=== PATIENT | female | born 1975 | race Two or more races ===

== ENCOUNTER 2021-12-12 00:57 | Emergency (ER) | payer MEDICAID ==
[2021-12-12] MEDS ORDERED: Sodium Chloride 0.9% 10 ML Syringe FLUSH PRN (01:24)
[2021-12-12] MEDS ORDERED: Labetalol 20 MG/4 ML Syringe IVPUSH ONE (01:38)
[2021-12-12] MEDS ORDERED: Ketorolac 30 MG/ML SDV IVPUSH ONE (02:50)
[2021-12-12] MEDS ORDERED: hydrALAZINE 20 MG/ML SDV IVPUSH ONE ×2 (02:50→03:00)
== END 2021-12-12 03:50 | disposition home or self-care (01) ==
LOC: FB.ED 00:57
DX: I16.0 Hypertensive urgency (principal); Z79.899 Other long term (current) drug therapy
CPT/HCPCS: 93005; 96374; 96375; 99283-25; J0360; J1885; J3490

== ENCOUNTER 2021-12-17 02:40 | Emergency (ER) | payer MEDICAID ==
[2021-12-17] MEDS ORDERED: hydrALAZINE 20 MG/ML SDV IM STA (03:15)
[2021-12-17] MEDS ORDERED: cloNIDine 0.1 MG Tab PO STA (03:15)
[2021-12-17] MEDS ORDERED: amLODIPine 10 MG Tab PO STA (04:40)
== END 2021-12-17 04:55 | disposition home or self-care (01) ==
LOC: FB.ED 02:40
DX: I16.9 Hypertensive crisis, unspecified (principal); I10 Essential (primary) hypertension; Z79.899 Other long term (current) drug therapy
CPT/HCPCS: 96372; 99283; A9270; J0360

== ENCOUNTER 2022-01-14 15:45 | Emergency (ER) | payer MEDICAID ==
[2022-01-14] MEDS ORDERED: hydrALAZINE 20 MG/ML SDV IVPUSH ONE (16:08)
[2022-01-14] MEDS ORDERED: Nitroglycerin 0.4 MG Tab.SL SL ONE (16:08)
[2022-01-14 16:14] LABS: ESTIMATED GFR 33 mL/min (>60)
[2022-01-14] MEDS: Sodium Chloride 0.9% 10 ML Syringe FLUSH PRN ×3 (16:20→16:58)
[2022-01-14] MEDS ORDERED: Ketorolac 30 MG/ML SDV IVPUSH ONE (16:47)
== END 2022-01-14 17:10 | disposition home or self-care (01) ==
LOC: FB.ED 15:45
DX: R07.9 Chest pain, unspecified (principal); I16.9 Hypertensive crisis, unspecified; I10 Essential (primary) hypertension
CPT/HCPCS: 36415; 71045; 80053; 84484; 85025; 93005; 93010; 96374; 96375; 99283; 99285-25; A9270-GY; J0360; J1885; J3360; J3490

== ENCOUNTER 2022-03-07 22:00 | Emergency (ER) | payer MEDICAID ==
[2022-03-07] MEDS ORDERED: hydrALAZINE 50 MG Tab PO STA (22:16)
[2022-03-07] MEDS ORDERED: Furosemide 100 MG/10 ML SDV IVPUSH ONE (22:18)
[2022-03-07] MEDS ORDERED: hydrALAZINE 25 MG Tab PO STA (22:26)
[2022-03-07] MEDS ORDERED: Nitroglycerin/D5W 25 MG/250 ML BOTTLE IV SCH (22:30)
[2022-03-07 23:12] LABS: ESTIMATED GFR 29 mL/min (>60)
== END 2022-03-08 00:25 ==
LOC: FB.ED 22:00
DX: I13.0 Hypertensive heart and chronic kidney disease with heart failure and stage 1 through stage 4 chronic kidney disease, or unspecified chronic kidney disease (principal); N18.32 Chronic kidney disease, stage 3b; I50.9 Heart failure, unspecified; N17.9 Acute kidney failure, unspecified
CPT/HCPCS: 36415; 71046; 80048; 83880; 84484; 85027; 96365; 96366; 96375; 99285-25; A9270-GY; J1940; J3490

== ENCOUNTER 2023-02-16 17:30 | Emergency (ER) | payer MEDICAID ==
[2023-02-16] MEDS ORDERED: Sodium Chloride 0.9% 10 ML Syringe FLUSH PRN (18:08)
[2023-02-16 18:21] LABS: BASOPHILS PERCENT AUTO 0.6 % (0.2-1.5); EOSINOPHILS ABSOLUTE AUTO 0.1 x10-3/uL (0.0-0.8); EOSINOPHILS PERCENT AUTO 1.8 % (0.6-8.1); HEMATOCRIT 31.5 % (34.2-48.2); HEMOGLOBIN 10.7 g/dL (11.4-15.5); LYMPHOCYTES ABSOLUTE AUTO 0.5 x10-3/uL (1.0-4.4); LYMPHOCYTES PERCENT AUTO 7.4 % (18.4-52.1); MEAN CORPUSCULAR HEMOGLOBIN 31.1 pg (23.9-33.9); MEAN CORPUSCULAR VOLUME 91.4 fL (76.7-100.5); MEAN PLATELET VOLUME 7.7 fL (7.1-12.4); MONOCYTES ABSOLUTE AUTO 0.5 x10-3/uL (0.3-1.0); MONOCYTES PERCENT AUTO 7.2 % (4.4-15.7); NEUTROPHILS ABSOLUTE AUTO 5.8 x10-3/uL (1.5-6.3); PLATELET COUNT,PLT 210 x10(3)uL (151-488); RED BLOOD CELL COUNT 3.44 x10(6)uL (3.60-5.20); RED CELL DISTRIBUTION WIDTH 16.7 % (12.3-16.5)
[2023-02-16] MEDS ORDERED: hydrALAZINE 20 MG/ML SDV IVPUSH ONE (18:24)
[2023-02-16 18:29] LABS: BASE EXCESS VENOUS,POC 9 mmol/L (-2 - 3+); PCO2 VENOUS,POC 33 mmHg (41-51); PH VENOUS,POC 7.58 pH Units (7.32-7.43)
[2023-02-16] MEDS ORDERED: Meclizine 25 MG Tab PO ONE (18:30)
[2023-02-16] MEDS ORDERED: Ondansetron 4 MG/2 ML SDV IVPUSH ONE (18:30)
[2023-02-16 18:35] LABS: A/G RATIO 0.6; ALANINE AMINOTRANSFERASE,ALT 64 U/L (12-36); ALBUMIN 3.4 g/dL (3.5-5.2); ALKALINE PHOSPHATASE 162 IU/L (56-112); ASPARTATE AMNIOTRANSFERASE,AST 44 IU/L (5-25); BILIRUBIN TOTAL 0.5 mg/dL (0.1-1.3); BLOOD UREA NITROGEN,BUN 22 mg/dL (7-18); BUN/CREATININE RATIO 6.7 (9-20); CALCIUM 9.2 mg/dL (8.6-10.2); CARBON DIOXIDE,CO2 33 mmol/L (21-32); CHLORIDE,CL 97 mmol/L (100-110); EST CRCL DRUG DOSING (CG) 15.14 mL/min; ESTIMATED GFR 17 mL/min (>60); GLUCOSE RANDOM 126 mg/dL (80-116); POTASSIUM,K 3.7 mmol/L (3.5-5.3); PROTEIN TOTAL,TP 8.7 g/dL (6.0-8.0); SODIUM,NA 137 mmol/L (135-145)
[2023-02-16 18:38] LABS: LACTIC ACID 0.9 mmol/L (0.4-2.0)
[2023-02-16 18:41] LABS: TROPONIN I 13.6 pg/mL (4.0-60.3)
[2023-02-16 18:49] LABS: CREATININE 3.3 mg/dL (0.55-1.02)
[2023-02-16 19:14] LABS: INFLUENZA A NAA NEGATIVE (NEGATIVE); INFLUENZA B NAA NEGATIVE (NEGATIVE)
[2023-02-16 19:17] LABS: CORONAVIRUS COVID-19 NAA POSITIVE (NEGATIVE)
[2023-02-16 19:18] LABS: BILIRUBIN,URINE NEGATIVE (NEGATIVE); GLUCOSE,URINE 100 mg/dL (NORMAL); KETONES,URINE NEGATIVE (NEGATIVE); LEUKOCYTE ESTERASE,URINE NEGATIVE (NEGATIVE); NITRITE,URINE NEGATIVE (NEGATIVE); OCCULT BLOOD,URINE LARGE (NEGATIVE); PROTEIN,URINE 500 mg/dL (NEGATIVE); UROBILINOGEN,URINE NORMAL (NEGATIVE)
[2023-02-16 19:21] LABS: APPEARANCE,URINE SLIGHTLY CLOUDY (CLEAR); BACTERIA,URINE FEW (NS); COLOR,URINE YELLOW (YELLOW); RBC,URINE 40-50 (0-5); SQUAMOUS EPITHELIAL CELLS,UR MODERATE (NS,R,O); WBC,URINE 0-5 (0-5)
[2023-02-16] MEDS ORDERED: Labetalol 20 MG/4 ML Syringe IVPUSH ONE (20:15)
[2023-02-17] MEDS ORDERED: Acetaminophen/HYDROcodone 325-5 MG Tab PO ONE (00:30)
[2023-02-17] MEDS ORDERED: hydrOXYzine HCl 50 MG/ML SDV IM ONE (00:30)
[2023-02-17] MEDS ORDERED: amLODIPine 10 MG Tab PO STA (04:07)
[2023-02-17] MEDS ORDERED: Dexamethasone 4 MG/ML 5 ML MDV IVPUSH ONE (04:14)
[2023-02-17] MEDS ORDERED: amLODIPine 5 MG Tab ONE (06:52)
[2023-02-17] MEDS ORDERED: amLODIPine 5 MG Tab PO ONE (06:53)
[2023-02-17] MEDS ORDERED: Dexamethasone 4 MG/ML SDV ONE (06:53)
[2023-02-17] MEDS ORDERED: hydrALAZINE 50 MG Tab PO STA (08:46)
[2023-02-17] MEDS ORDERED: Ibuprofen 200 MG Tab PO PRN (10:52)
[2023-02-17] MEDS ORDERED: Acetaminophen 500 MG Tab PO PRN (10:52)
[2023-02-17] MEDS ORDERED: DIPHENHYDRAMINE HCL 50 MG PO SCH (11:00)
[2023-02-17 11:27] LABS: HEMATOCRIT 33.8 % (34.2-48.2); HEMOGLOBIN 11.3 g/dL (11.4-15.5); MEAN CORPUSCULAR HEMOGLOBIN 30.9 pg (23.9-33.9); MEAN CORPUSCULAR HGB CONC 33.5 g/dL (31.9-34.8); MEAN CORPUSCULAR VOLUME 92.2 fL (76.7-100.5); MEAN PLATELET VOLUME 7.7 fL (7.1-12.4); PLATELET COUNT,PLT 200 x10(3)uL (151-488); RED BLOOD CELL COUNT 3.66 x10(6)uL (3.60-5.20); RED CELL DISTRIBUTION WIDTH 16.5 % (12.3-16.5); WHITE BLOOD CELL COUNT,WBC 7.9 x10-3/uL (3.0-10.3)
[2023-02-17] MEDS ORDERED: Carvedilol 12.5 MG Tab PO SCH ×2 (11:30)
[2023-02-17] MEDS ORDERED: atorvaSTATin 40 MG Tab PO SCH (11:30)
[2023-02-17] MEDS ORDERED: Cholecalciferol (Vitamin D3) 25 MCG Tab PO SCH (11:30)
[2023-02-17] MEDS ORDERED: Aspirin 81 MG Tab.EC PO SCH (11:30)
[2023-02-17] MEDS ORDERED: Diltiazem 240 MG Cap.ER PO SCH (11:30)
[2023-02-17] MEDS ORDERED: Folic Acid/Vitamin B Complex With C Cap PO SCH (11:30)
[2023-02-17] MEDS ORDERED: Pantoprazole 20 MG Tab, Delayed Release PO SCH (11:30)
[2023-02-17] MEDS ORDERED: Thiamine 100 MG Tab PO SCH (11:30)
[2023-02-17 11:44] LABS: LYMPHOCYTES PERCENT MAN 10 % (13-37); MONOCYTES PERCENT MAN 2 % (4-12); SEG NEUTROPHILS PERCENT MAN 88 % (46-82)
[2023-02-17 11:46] LABS: A/G RATIO 0.6; ALANINE AMINOTRANSFERASE,ALT 56 U/L (12-36); ALBUMIN 3.3 g/dL (3.5-5.2); ALKALINE PHOSPHATASE 148 IU/L (56-112); ASPARTATE AMNIOTRANSFERASE,AST 47 IU/L (5-25); BILIRUBIN TOTAL 0.4 mg/dL (0.1-1.3); BLOOD UREA NITROGEN,BUN 32 mg/dL (7-18); BUN/CREATININE RATIO 7.3 (9-20); CARBON DIOXIDE,CO2 29 mmol/L (21-32); CHLORIDE,CL 94 mmol/L (100-110); EST CRCL DRUG DOSING (CG) 11.35 mL/min; ESTIMATED GFR 12 mL/min (>60); GLUCOSE RANDOM 246 mg/dL (80-116); POTASSIUM,K 4.2 mmol/L (3.5-5.3); PROTEIN TOTAL,TP 8.6 g/dL (6.0-8.0); SODIUM,NA 131 mmol/L (135-145)
[2023-02-17] MEDS ORDERED: Calcium Acetate 667 MG Cap PO SCH (12:00)
[2023-02-17] MEDS ORDERED: diphenhydrAMINE 50 MG Cap PO PRN (12:00)
[2023-02-17 12:03] LABS: CREATININE 4.4 mg/dL (0.55-1.02)
[2023-02-17] MEDS ORDERED: hydrALAZINE 50 MG Tab PO SCH (14:00)
[2023-02-17] MEDS ORDERED: Escitalopram 20 MG Tab PO SCH (17:00)
[2023-02-17] MEDS ORDERED: Lisinopril 10 MG Tab PO SCH (21:00)
== END 2023-02-17 14:55 | disposition home or self-care (01) ==
LOC: FB.ED 17:30
DX: U07.1 COVID-19 (principal); R09.02 Hypoxemia; I13.2 Hypertensive heart and chronic kidney disease with heart failure and with stage 5 chronic kidney disease, or end stage renal disease; E11.22 Type 2 diabetes mellitus with diabetic chronic kidney disease; I50.9 Heart failure, unspecified; N18.6 End stage renal disease; E66.9 Obesity, unspecified; Z68.41 Body mass index [BMI] 40.0-44.9, adult
CPT/HCPCS: 0240U; 36415; 71045; 80053; 81001; 82947; 83605; 83880; 84484; 85025; 87040; 93005; 96372; 96374; 96375; 96376; 99285; A9270; J0360; J1100; J2405; J3410; J3490

== ENCOUNTER 2023-07-20 11:34 | Emergency (ER) | payer MEDICAID ==
[2023-07-20] MEDS ORDERED: Metoclopramide 10 MG/2 ML SDV IVPUSH ONE (12:21)
[2023-07-20 12:39] LABS: HEMOGLOBIN 11.3 g/dL (11.4-15.5); MEAN CORPUSCULAR HGB CONC 33.2 g/dL (31.9-34.8); MEAN CORPUSCULAR VOLUME 87.2 fL (76.7-100.5); MEAN PLATELET VOLUME 7.8 fL (7.1-12.4); PLATELET COUNT,PLT 164 x10(3)uL (151-488); RED CELL DISTRIBUTION WIDTH 17.1 % (12.3-16.5); WHITE BLOOD CELL COUNT,WBC 8.7 x10-3/uL (3.0-10.3)
[2023-07-20 12:48] LABS: A/G RATIO 0.7; ASPARTATE AMNIOTRANSFERASE,AST 29 IU/L (5-25); BLOOD UREA NITROGEN,BUN 27 mg/dL (7-18); CHLORIDE,CL 94 mmol/L (100-110); PROTEIN TOTAL,TP 8.9 g/dL (6.0-8.0)
[2023-07-20 12:49] LABS: EOSINOPHILS PERCENT MAN 2 % (0-5); LYMPHOCYTES PERCENT MAN 5 % (13-37); MONOCYTES PERCENT MAN 6 % (4-12); SEG NEUTROPHILS PERCENT MAN 87 % (46-82)
[2023-07-20 12:57] LABS: C-REACTIVE PROTEIN 1.43 mg/dL (<0.50); TROPONIN I 7.7 pg/mL (4.0-60.3)
[2023-07-20 13:13] LABS: ALANINE AMINOTRANSFERASE,ALT 34 U/L (12-36); ALKALINE PHOSPHATASE 179 IU/L (56-112); BILIRUBIN TOTAL 0.5 mg/dL (0.1-1.3); CALCIUM 9.4 mg/dL (8.6-10.2); CARBON DIOXIDE,CO2 28 mmol/L (21-32); GLUCOSE RANDOM 127 mg/dL (80-116); POTASSIUM,K 3.5 mmol/L (3.5-5.3); SODIUM,NA 134 mmol/L (135-145)
[2023-07-20 13:16] LABS: INFLUENZA A NAA NEGATIVE (NEGATIVE); INFLUENZA B NAA NEGATIVE (NEGATIVE); RESPIRATORY SYNCYTIAL VIR NAA NEGATIVE (NEGATIVE)
[2023-07-20 13:18] LABS: ALBUMIN 3.5 g/dL (3.5-5.2); BUN/CREATININE RATIO 7.9 (9-20); CREATININE 3.4 mg/dL (0.55-1.02); EST CRCL DRUG DOSING (CG) 14.53 mL/min; ESTIMATED GFR 16 mL/min (>60)
[2023-07-20 13:29] LABS: CORONAVIRUS COVID-19 NAA NEGATIVE (NEGATIVE)
[2023-07-20] MEDS: Acetaminophen 500 MG Tab PO ONE (14:14)
[2023-07-20] MEDS: Metoclopramide 10 MG/2 ML SDV IM ONE (14:16)
[2023-07-20 14:43] LABS: BILIRUBIN,URINE NEGATIVE (NEGATIVE); GLUCOSE,URINE 50 mg/dL (NORMAL); KETONES,URINE NEGATIVE (NEGATIVE); LEUKOCYTE ESTERASE,URINE NEGATIVE (NEGATIVE); NITRITE,URINE NEGATIVE (NEGATIVE); OCCULT BLOOD,URINE NEGATIVE (NEGATIVE); PROTEIN,URINE 500 mg/dL (NEGATIVE); UROBILINOGEN,URINE NORMAL (NEGATIVE)
[2023-07-20 14:48] LABS: APPEARANCE,URINE CLEAR (CLEAR); BACTERIA,URINE FEW (NS); COLOR,URINE YELLOW (YELLOW); HYALINE CASTS,URINE MODERATE (NS); RBC,URINE 0-5 (0-5); SQUAMOUS EPITHELIAL CELLS,UR FEW (NS,R,O); WBC,URINE 0-5 (0-5)
[2023-07-20 14:49] LABS: AMORPHOUS SEDIMENT,URINE FEW
[2023-07-20] MEDS: Amoxicillin/Clavulanate K 500-125 MG Tab PO ONE (15:37)
[2023-07-20] MEDS: Azithromycin 500 MG Tab PO ONE (15:37)
[2023-07-20] MEDS: Amoxicillin/Clavulanate K 875-125 MG Tab PO ONE (15:39)
== END 2023-07-20 16:30 | disposition home or self-care (01) ==
LOC: FB.ED 11:34
DX: J18.9 Pneumonia, unspecified organism (principal); I13.0 Hypertensive heart and chronic kidney disease with heart failure and stage 1 through stage 4 chronic kidney disease, or unspecified chronic kidney disease; I50.9 Heart failure, unspecified; N18.9 Chronic kidney disease, unspecified; E11.22 Type 2 diabetes mellitus with diabetic chronic kidney disease; K21.9 Gastro-esophageal reflux disease without esophagitis; E66.9 Obesity, unspecified; Z99.2 Dependence on renal dialysis; Z79.82 Long term (current) use of aspirin; Z79.899 Other long term (current) drug therapy; Z86.16 Personal history of COVID-19; Z68.41 Body mass index [BMI] 40.0-44.9, adult
CPT/HCPCS: 0241U; 36415; 71046; 80053; 81001; 83605; 83880; 84484; 85025; 86140; 87040; 93005; 96372; 99285; A9270; J2765; 93010; 99284

== ENCOUNTER 2023-10-30 16:56 | Emergency (ER) | payer MEDICAID ==
[2023-10-30 17:47] LABS: BASOPHILS PERCENT AUTO 0.4 % (0.2-1.5); EOSINOPHILS PERCENT AUTO 0.1 % (0.6-8.1); HEMATOCRIT 30.4 % (34.2-48.2); HEMOGLOBIN 9.9 g/dL (11.4-15.5); LYMPHOCYTES ABSOLUTE AUTO 0.9 x10-3/uL (1.0-4.4); LYMPHOCYTES PERCENT AUTO 9.3 % (18.4-52.1); MEAN CORPUSCULAR HEMOGLOBIN 30.3 pg (23.9-33.9); MEAN CORPUSCULAR HGB CONC 32.5 g/dL (31.9-34.8); MEAN CORPUSCULAR VOLUME 93.4 fL (76.7-100.5); MEAN PLATELET VOLUME 7.2 fL (7.1-12.4); MONOCYTES ABSOLUTE AUTO 0.7 x10-3/uL (0.3-1.0); MONOCYTES PERCENT AUTO 7.4 % (4.4-15.7); NEUTROPHILS ABSOLUTE AUTO 7.8 x10-3/uL (1.5-6.3); NEUTROPHILS PERCENT AUTO 82.8 % (30.8-76.2); PLATELET COUNT,PLT 192 x10(3)uL (151-488); RED BLOOD CELL COUNT 3.26 x10(6)uL (3.60-5.20); RED CELL DISTRIBUTION WIDTH 16.4 % (12.3-16.5); WHITE BLOOD CELL COUNT,WBC 9.4 x10-3/uL (3.0-10.3)
[2023-10-30 18:00] LABS: A/G RATIO 0.6; ALANINE AMINOTRANSFERASE,ALT 68 U/L (12-36); ALBUMIN 3.3 g/dL (3.5-5.2); ALKALINE PHOSPHATASE 292 IU/L (56-112); ASPARTATE AMNIOTRANSFERASE,AST 63 IU/L (5-25); BILIRUBIN TOTAL 0.6 mg/dL (0.1-1.3); BLOOD UREA NITROGEN,BUN 19 mg/dL (7-18); CALCIUM 8.9 mg/dL (8.6-10.2); CARBON DIOXIDE,CO2 31 mmol/L (21-32); CHLORIDE,CL 94 mmol/L (100-110); ESTIMATED GFR 14 mL/min (>60); GLUCOSE RANDOM 158 mg/dL (80-116); POTASSIUM,K 3.8 mmol/L (3.5-5.3); PROTEIN TOTAL,TP 8.5 g/dL (6.0-8.0); SODIUM,NA 133 mmol/L (135-145)
[2023-10-30] MEDS: fentaNYL 100 MCG/2 ML SDV IVPUSH ONE (18:00)
[2023-10-30 18:01] LABS: TROPONIN I 17.3 pg/mL (4.0-60.3)
[2023-10-30 18:02] LABS: CREATININE 3.8 mg/dL (0.55-1.02)
[2023-10-30] MEDS: Labetalol 20 MG/4 ML Syringe IVPUSH ONE (18:14)
[2023-10-30] MEDS: hydrALAZINE 20 MG/ML SDV IVPUSH ONE (19:05)
== END 2023-10-30 20:38 | disposition home or self-care (01) ==
LOC: FB.ED 16:56
DX: I15.0 Renovascular hypertension (principal); I13.2 Hypertensive heart and chronic kidney disease with heart failure and with stage 5 chronic kidney disease, or end stage renal disease; I50.9 Heart failure, unspecified; N18.6 End stage renal disease; E11.22 Type 2 diabetes mellitus with diabetic chronic kidney disease; I25.10 Atherosclerotic heart disease of native coronary artery without angina pectoris; E78.00 Pure hypercholesterolemia, unspecified; Z99.2 Dependence on renal dialysis; Z79.899 Other long term (current) drug therapy; Z79.82 Long term (current) use of aspirin; Z86.16 Personal history of COVID-19
CPT/HCPCS: 36415; 71045; 80053; 83605; 83690; 84484; 85025; 93005; 96374; 96375; 99285; J0360; J1920; J3010